=== PATIENT | female | born 1990 | race Caucasian/White ===

== ENCOUNTER 2023-07-05 14:08 | Outpatient (CLI) | payer MEDICAID, SELFPAY | END 2023-07-05 14:09 | disposition home or self-care (01) | LOC: AMB 07-13 03:51 | PROVIDERS: Visit Provider Emergency Medicine | DX: F30.9 Manic episode, unspecified (principal) ==

== ENCOUNTER 2023-07-05 14:44 | Emergency (ER) | payer MEDICAID, SELFPAY ==
[2023-07-05 15:09] VITALS: BP 135/89; PULSE 99; RESP 18; TEMP 36.7; O2SAT 99
--- NOTE | 2023-07-05 15:13 | ED.GENADULT ---
HPI - General Adult General Date Seen: 07/05/23 Chief complaint: Psychiatric Problem/Disorder Stated complaint: mental health Time Seen by Provider: 07/05/23 14:56 History of Present Illness HPI narrative: History is limited by altered mental status 33-year-old female brought to the ER today by police and EMS for mental health crisis. Report from public safety police with her is that she has a previous diagnosis of bipolar. Sounds like it had been fairly well managed on medications for several years. A few months ago it sounds like her mental health status started to deteriorate. She has been living with her family. She has gone through a break-up with her boyfriend. It sounds like someone has been trying to adjust her medications. Possibly trying to increase Seroquel dose? Family called EMS today because the patient was becoming more more agitated. They have reported paramedics patient had gone maybe 5 days without sleep. Today she was trying to run out in the street. Family was able to hold her down and were apparently holding her down when police arrived. Overall the situation was not violent or aggressive so police did not take the patient into handcuffs or custody. Patient was somewhat agitated and very confused and disoriented, but was following commands and ultimately did climb onto the EMS gurney for transport without requiring physical restraints. I encountered the patient when she comes out into her room and she is being redirected into her room by security and police. She is not agitated but she is not really following the commands either. When asked the patient if she remembers what is going on she has a somewhat blank stare. She says to the nurse, ?you look tired. 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 When asked her if she knows what day it is she has a blank stare. Please officers tell her that it is good Saturday and that it is June 2023. She seems confused by knowing the year, and says ?that was a long time ago!?. She is not able to give any history or really answer questions. I asked her if she is having any pain but she does not answer. I asked her to if she is thirsty and hungry and she does not answer. Ultimately she agrees to take my hand at L back and remain get a rest on bed. Not able to get any further history. She is not able to tell me about any meds that she is taking or if she has been sleeping or not. Unclear if she is having hallucinations or delusions. She seems very disoriented, somewhat hyper stimulated but not agitated or physically aggressive. She is not shouting or swearing. Additional history from her mother is that she does have a history of bipolar. She is on lithium, lamotrigine, and p.r.n. Seroquel. Has been stable for several years since her last hospitalization in 2017. Follows with Psychiatry, Dr. Powell. They have been trying to wean off some of her meds lately. 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 Mother notes worsening insomnia for at least the past 5 days also worsening confusion and disorientation. Today she was trying to run out of the house, prompting call to 911. She is probably Mr. [place] and lamotrigine for couple of days. Mother was trying to help get her back on meds yesterday and this morning. Also gave her a dose of her p.r.n. Seroquel which seemed to cause worsening agitation. Mother's phone number is [phone] Related Data Home Medications Medication Instructions Recorded Confirmed lamotrigine 200 mg tablet 200 mg PO DAILY 07/05/23 07/05/23 lithium carbonate 150 mg capsule mg PO 07/05/23 nicotine (polacrilex) 2 mg gum mg PO Q2H PRN nicotine cravings 07/05/23 quetiapine 100 mg tablet mg PO 07/05/23 quetiapine 25 mg tablet 25 - 50 mg PO QPM PRN 07/05/23 07/05/23 sertraline 100 mg tablet 150 mg PO DAILY 07/05/23 07/05/23 Allergies Allergy/AdvReac Type Severity Reaction Status Date / Time venlafaxine [From Effexor] AdvReac Severe Paulette Verified 07/05/23 19:53 clomipramine AdvReac Intermediate Paulette Verified 07/05/23 19:53 fluoxetine AdvReac Intermediate sedation Verified 07/05/23 19:53 PFSH PFSH Social History Smoking Status: Smoker, status unknown Do you use any of these nicotine containing products: None Exam Narrative: Exam Narrative: Primary Survey: A- patent. Confused and disoriented, but Speaking clearly. Phonation normal. No stridor. B- breathing easily. Lung sounds clear and equal. Oxygen saturation normal on room air C- no active bleeding. Blood pressure stable. Symmetric pulses and cap refill in 4 extremities. D- alert but night able to answer orientation questions. Seems disoriented and confused. Shouting loudly. Appears manic. GCS 15. No focal deficits. Gait steady in the hallway. Constitutional: Appears well-developed and well-nourished. Alert. HENT: Head: Atraumatic. Nose: Nose normal. Mouth/Throat: Oral mucosa is clear and moist. no trismus. Pharynx normal. Tonsils symmetric. No tonsillar enlargement, erythema, or exudate. Eyes: Conjunctivae normal. EOM normal. Pupils equal, round, and reactive to light. No scleral icterus. Neck: Normal range of motion. Neck supple. No tracheal deviation present. Thyroid normal. Cardiovascular: Normal rate, regular rhythm. No gallop. No friction rub. No murmur heard. Symmetric radial artery pulses Pulmonary/Chest: Effort normal. No stridor. No respiratory distress. No wheezes. No rales. No rhonchi Abdominal: Soft. Bowel sounds normal. No distension. No mass. No tenderness. No rebound. No guarding. Musculoskeletal: RUE: Normal range of motion. No tenderness. No deformity LUE: Normal range of motion. No tenderness. No deformity RLE: Normal range of motion. No edema. No tenderness. No deformity LLE: Normal range of motion. No edema. No tenderness. No deformity Neurological: Alert and oriented to person, but not oriented to place or time. Normal strength. CN II-VII intact. No sensory deficit. GCS eye subscore is 4. GCS verbal subscore is 5. GCS motor subscore is 6. Normal coordination Skin: Skin is warm and dry. No rash noted. No pallor. Normal capillary refill. Psychiatric: Somewhat agitated. Standing in the hallway. She is not aggressive or pushing or assaulting anyone. She is not making any threats. Sometimes she is shouting loudly without any clear intent. Initially not responding to verbal instructions to return to her room. Ultimately I am able to get her to take my hand walk back to late on her bed. Still agitated. She consented to take oral Zyprexa, administered. With this she was still agitated so we administered IM Zyprexa. Still agitated and shouting. We administered droperidol and Versed and with this she was sleeping. Recheck-awake. Requesting something right with. She was given a crayon and paper and was writing the word accept repetitively on the paper. Most history obtained from the patient's mother, see HPI. Const: Vital Signs, click to edit/add: Vital Signs - 24 hr 07/05/23 15:09 Temperature 98.1 F Pulse Rate [Pulse Oximeter] 99 Respiratory Rate 18 Blood Pressure [facility] 135/89 Pulse Oximetry 99 Oxygen Delivery Me thod Room Air Course Vital Signs Vital signs: Initial Vital Signs Temperature 98.1 F 07/05/23 15:09 Temperature Source Temporal Artery Scan 07/05/23 15:09 Pulse Rate 99 07/05/23 15:09 Respiratory Rate 18 07/05/23 15:09 Blood Pressure 135/89 07/05/23 15:09 Blood Pressure Mean 104 07/05/23 15:09 Blood Pressure Position Supine 07/05/23 15:09 Pulse Oximetry 99 07/05/23 15:09 Oxygen Delivery Method Room Air 07/05/23 15:09 Vital Signs Temperature 98.1 F 07/05/23 15:09 Pulse Rate 99 07/05/23 15:09 Respiratory Rate 18 07/05/23 15:09 Blood Pressure 135/89 07/05/23 15:09 Pulse Oximetry 99 07/05/23 15:09 Oxygen Delivery Method Room Air 07/05/23 15:09 Temperature 98.1 F 07/05/23 15:09 Pulse Rate 99 07/05/23 15:09 Respiratory Rate 18 07/05/23 15:09 Blood Pressure 135/89 07/05/23 15:09 Pulse Oximetry 99 07/05/23 15:09 Oxygen Delivery Method Room Air 07/05/23 15:09 Medications Administered Medications: Generic Name Dose Route Start Last Admin Trade Name Freq PRN Reason Stop Dose Admin Lorazepam 1 mg 07/05/23 19:24 07/05/23 19:40 Lorazepam 1 Mg Tablet PO 1 mg ONCE PRN Administration Anxiety Discontinued Medications Generic Name Dose Route Start Last Admin Trade Name Freq PRN Reason Stop Dose Admin Droperidol 5 mg 07/05/23 15:55 07/05/23 16:06 Droperidol 2.5 Mg/Ml Inj IM 07/05/23 15:56 5 mg ONCE ONE Administration Midazolam HCl 1 mg 07/05/23 15:55 07/05/23 16:07 Midazolam Hcl 1 Mg/Ml Inj IM 07/05/23 15:56 1 mg ONCE ONE Administration Olanzapine 10 mg 07/05/23 15:10 07/05/23 15:26 Olanzapine 5 Mg Tab.Rapdis PO 07/05/23 15:11 10 mg ONCE ONE Administration Medical Decision Making MDM Narrative Medical decision making narrative: 33-year-old female with history of bipolar disorder presenting to the ER today by EMS from home where she lives with her parents for acute alteration in mental status. She has a history of bipolar with multiple recent stressors. She has had insomnia for probably 5 nights and stopped taking her meds for couple of nights today leading to increasing agitation and erratic behavior. She is not violent or aggressive and has not harmed anyone. However it is clear that she is very disoriented and needs inpatient mental health evaluation. We did do laboratory workup which shows no evidence for renal failure, hypoglycemia, hepatic failure,. Some Tylenol salicylate levels are negative. Urine drug screen is positive for marijuana and tricyclics but otherwise negative. Alcohol level negative. She is not febrile and has no cough further infection symptoms but does have a leukocytosis of 14. At this point with no headache, no fever, I do not think she has meningitis or encephalitis. Would not perform lumbar puncture at this time. She will need inpatient stabilization mental standpoint . With reasonable clinical confidence I do think she is medically clear despite her leukocytosis. I ordered lithium and lamotrigine drug levels. These are not back at this time because they are send out labs. Discussed with Dr. Larsen, psychiatry from [facility] who accepted the patient for inpatient mental health admission. Lab Data Labs: Lab Results 07/05/23 07/05/23 07/05/23 Range/Units 15:30 18:15 18:15 WBC 14.76 H (4.50-11.00) K/uL RBC 4.36 (4.00-5.20) m/uL Hgb 13.8 (12.0-16.0) gm/dL Hct 40.7 (33.0-51.0) % MCV 93 (80-100) fL MCH 32 (26-34) pg MCHC 34 (32-36) gm/dL RDW Coeff of Salvatore 12.4 (11.5-15.5) % Plt Count 259 (140-440) K/uL Neut % (Auto) 74.8 H (42.0-72.0) % Lymph % (Auto) 17.3 L (20-44) % [place] % (Auto) 7.4 (0.0-11.0) % Eos % (Auto) 0.2 (0.0-7.0) % Baso % (Auto) 0.1 (0.0-3.0) % Neut # (Auto) 11.00 H (1.7-7.0) K/uL Lymph # (Auto) 2.60 (0.90-2.90) K/uL [place] # (Auto) 1.10 H (0.00-0.90) K/UL Eos # (Auto) 0.00 (0.00-0.50) K/uL Baso # (Auto) 0.00 (0.00-0.30) K/uL Abs Immat Gran (auto) 0.00 (0.00-0.30) K/uL Imm/Tot Granulo (auto) 0.2 % Sodium 140 (135-149) mmol/L Potassium 4.1 (3.6-5.1) mmol/L Chloride 110 (96-114) mmol/L Carbon Dioxide 24 (20-32) mmol/L Anion Gap 6 L (7-15) mEq/L BUN 9 (5-24) mg/dL Creatinine 0.5 (0.5-1.5) mg/dL Estimated GFR 127 ml/min Glucose 101 (60-115) mg/dL Calcium 9.7 (8.4-10.6) mg/dL Total Bilirubin 0.5 (0.1-1.5) mg/dL AST 23 (12-35) U/L ALT 22 (4-35) U/L Alkaline Phosphatase 47 (40-150) U/L Total Protein 7.4 (6.0-8.3) g/dL Albumin 4.5 (3.3-5.0) g/dL TSH 4.000 (0.270-4.200) uIU/mL Urine Color Yellow (Yellow) Urine Appearance Clear (Clear) Urine pH 7.5 (5.0-8.5) Ur Specific [place] 1.020 (1.000-1.030) Urine Protein Negative (Negative) Urine Glucose (UA) Negative (Negative) Urine Ketones Negative (Negative) Urine Blood Negative (Negative) Urine Nitrite Negative (Negative) Urine Bilirubin Negative (Negative) Urine Urobilinogen 0.2 (0.2-1.0) Ur Leukocyte Esterase Negative (Negative) Urine RBC 0-2 (0-2) Urine WBC 0-2 (0-5) Ur Squamous Epith Cells Few (None-Few) Urine Bacteria Few A (None) Urine HCG, Qual Negative (Negative) Salicylates Cancelled < 1.0 L Urine Opiates Screen Negative (Negative) Ur Oxycodone Screen Negative (Negative) Urine Methadone Screen Negative (Negative) Acetaminophen Cancelled Ur Barbiturates Screen Negative (Negative) U Tricyclic Antidepress POSITIVE A (Negative) Ur Phencyclidine Scrn Negative (Negative) Ur Amphetamines Screen Negative (Negative) U Methamphetamines Scrn Negative (Negative) U Benzodiazepines Scrn Negative (Negative) Urine Cocaine Screen Negative (Negative) U Marijuana (THC) Screen POSITIVE A (Negative) Ur Drug Screen Comment See Note Ethyl Alcohol 07/05/23 07/05/23 Range/Units 18:15 18:15 WBC (4.50-11.00) K/uL RBC (4.00-5.20) m/uL Hgb (12.0-16.0) gm/dL Hct (33.0-51.0) % MCV (80-100) fL MCH (26-34) pg MCHC (32-36) gm/dL RDW Coeff of Salvatore (11.5-15.5) % Plt Count (140-440) K/uL Neut % (Auto) (42.0-72.0) % Lymph % (Auto) (20-44) % [place] % (Auto) (0.0-11.0) % Eos % (Auto) (0.0-7.0) % Baso % (Auto) (0.0-3.0) % Neut # (Auto) (1.7-7.0) K/uL Lymph # (Auto) (0.90-2.90) K/uL [place] # (Auto) (0.00-0.90) K/UL Eos # (Auto) (0.00-0.50) K/uL Baso # (Auto) (0.00-0.30) K/uL Abs Immat Gran (auto) (0.00-0.30) K/uL Imm/Tot Granulo (auto) % Sodium (135-149) mmol/L Potassium (3.6-5.1) mmol/L Chloride (96-114) mmol/L Carbon Dioxide (20-32) mmol/L Anion Gap (7-15) mEq/L BUN (5-24) mg/dL Creatinine (0.5-1.5) mg/dL Estimated GFR ml/min Glucose (60-115) mg/dL Calcium (8.4-10.6) mg/dL Total Bilirubin (0.1-1.5) mg/dL AST (12-35) U/L ALT (4-35) U/L Alkaline Phosphatase (40-150) U/L Total Protein (6.0-8.3) g/dL Albumin (3.3-5.0) g/dL TSH (0.270-4.200) uIU/mL Urine Color (Yellow) Urine Appearance (Clear) Urine pH (5.0-8.5) Ur Specific [place] (1.000-1.030) Urine Protein (Negative) Urine Glucose (UA) (Negative) Urine Ketones (Negative) Urine Blood (Negative) Urine Nitrite (Negative) Urine Bilirubin (Negative) Urine Urobilinogen (0.2-1.0) Ur Leukocyte Esterase (Negative) Urine RBC (0-2) Urine WBC (0-5) Ur Squamous Epith Cells (None-Few) Urine Bacteria (None) Urine HCG, Qual (Negative) Salicylates Urine Opiates Screen (Negative) Ur Oxycodone Screen (Negative) Urine Methadone Screen (Negative) Acetaminophen < 10.0 L Ur Barbiturates Screen (Negative) U Tricyclic Antidepress (Negative) Ur Phencyclidine Scrn (Negative) Ur Amphetamines Screen (Negative) U Methamphetamines Scrn (Negative) U Benzodiazepines Scrn (Negative) Urine Cocaine Screen (Negative) U Marijuana (THC) Screen (Negative) Ur Drug Screen Comment Ethyl Alcohol Cancelled < 0.01 L Discharge Plan Discharge Clinical Impression: Paulette Patient Disposition: Xfer Other Prescriptions: No Action quetiapine 25 mg tablet 25 - 50 mg PO QPM PRN lamotrigine 200 mg tablet 200 mg PO DAILY nicotine (polacrilex) 2 mg gum PO Q2H PRN (Reason: nicotine cravings) sertraline 100 mg tablet 150 mg PO DAILY lithium carbonate 150 mg capsule PO quetiapine 100 mg tablet PO [facility] Inst[facility]
[2023-07-05] MEDS: OLANZapine 5 MG TAB.RAPDIS 10 MG PO (15:26)
[2023-07-05 15:41] LABS: Ur HCG Qualitative* Negative (Negative)
[2023-07-05 15:42] LABS: Appearance Urine Clear (Clear); Bilirubin Urine Negative (Negative); Blood Urine Negative (Negative); Color Urine Yellow (Yellow); Glucose Urine Negative (Negative); Ketones Urine Negative (Negative); Leukocyte Esterase Urine Negative (Negative); Nitrite Urine Negative (Negative); Protein Urine Negative (Negative); Urobilinogen Urine 0.2 (0.2-1.0); pH Urine 7.5 (5.0-8.5)
[2023-07-05 15:52] LABS: Amphetamine Screen Urine Negative (Negative); Barbiturate Screen Urine Negative (Negative); Benzodiazepines Screen Urine Negative (Negative); Cannabinoid Screen Urine POSITIVE (Negative); Cocaine Screen Urine Negative (Negative); Methadone Screen Urine Negative (Negative); Methamphetamines Screen Urine Negative (Negative); Opiate Screen Urine Negative (Negative); Oxycodone Screen Urine Negative (Negative); Phencyclidine Screen Urine Negative (Negative); Tricyclic Antidepressant Urine POSITIVE (Negative)
[2023-07-05] MEDS: droperidoL 2.5 MG/ML inj 5 MG IM (16:06)
[2023-07-05] MEDS: MIDAZOLAM HCL 1 MG/ML inj IM (16:07)
[2023-07-05 16:41] LABS: Bacteria Urine Few; RBC Urine 0-2 (0-2); Squamous Epithelial Cell Urine Few (None-Few); WBC Urine 0-2 (0-5)
[2023-07-05 18:24] LABS: Basophils Percent Auto 0.1 % (0.0-3.0); Eosinophils Percent Auto 0.2 % (0.0-7.0); Hematocrit 40.7 % (33.0-51.0); Hemoglobin* 13.8 gm/dL (12.0-16.0); Immature Granulocytes Pct Auto 0.2 %; Lymphocytes Percent Auto 17.3 % (20-44); Mean Corpuscular HGB Conc 34 gm/dL (32-36); Mean Corpuscular Hemoglobin 32 pg (26-34); Mean Corpuscular Volume 93 fL (80-100); Monocytes Percent Auto 7.4 % (0.0-11.0); Neutrophils Percent Auto 74.8 % (42.0-72.0); Platelet Count* 259 K/uL (140-440); RDW Coefficient of Variation % 12.4 % (11.5-15.5); Red Blood Count 4.36 m/uL (4.00-5.20); White Blood Count* 14.76 K/uL (4.50-11.00)
[2023-07-05 18:28] LABS: Slide Review Reflex No
[2023-07-05 18:38] LABS: Albumin* 4.5 g/dL (3.3-5.0)
[2023-07-05 18:39] LABS: Chloride* 110 mmol/L (96-114); Potassium* 4.1 mmol/L (3.6-5.1); Sodium* 140 mmol/L (135-149)
[2023-07-05 18:41] LABS: Alkaline Phosphatase* 47 U/L (40-150); Anion Gap 6 mEq/L (7-15); Aspartate Amino Transferase* 23 U/L (12-35); Bilirubin Total* 0.5 mg/dL (0.1-1.5); Carbon Dioxide* 24 mmol/L (20-32); Creatinine* 0.5 mg/dL (0.5-1.5); Estimated Glomerular Filt Rate 127 ml/min; Total Protein* 7.4 g/dL (6.0-8.3)
[2023-07-05 18:42] LABS: Alanine Aminotransferase* 22 U/L (4-35); Blood Urea Nitrogen* 9 mg/dL (5-24); Calcium* 9.7 mg/dL (8.4-10.6); Glucose* 101 mg/dL (60-115)
[2023-07-05 18:44] LABS: Acetaminophen* < 10.0 ug/mL (10.0-30.0); Ethanol* < 0.01 % (0.01-0.03); Salicylate* < 1.0 mg/dL (1.0-10)
[2023-07-05] MEDS: LORazepam 1 MG TABLET PO (19:40)
[2023-07-07 06:43] LABS: Lamotrigine 3.4 ug/mL (3.0-15.0)
[2023-07-07 11:46] LABS: Lithium, Serum or Plasma 0.2 mmol/L (0.5-1.2)
--- NOTE | 2023-07-08 14:17 | ED.NURSE ---
Mother was called to [employer] medications that were left here yesterday. given both prescription bottles to mother.
== END 2023-07-05 22:38 | disposition other institution (70) ==
PROVIDERS: Emergency Provider Emergency Medicine
DX: F30.9 Manic episode, unspecified (principal)
CPT/HCPCS: 36415; 80053; 80143; 80175; 80178; 80179; 80306; 81001; 81025; 82077; 84443; 85025; 87086; 96372; 99284; A9270; J1790; J2250

== ENCOUNTER 2023-07-05 22:34 | Outpatient (CLI) | payer MEDICAID, SELFPAY | END 2023-07-05 22:35 | disposition home or self-care (01) | LOC: AMB 07-13 03:57 | PROVIDERS: Visit Provider Internal Medicine | DX: F31.9 Bipolar disorder, unspecified (principal) | CPT/HCPCS: A0425; A0428 ==

== ENCOUNTER 2024-05-16 02:47 | Emergency (ER) | payer MEDICAID, SELFPAY ==
--- OUTSIDE RECORDS SUMMARY | 2024-05-16 02:49 | XMS_ITS | Clinical Summary ---
Author Organization [employer] [facility] Address [place], [place] [address] Care Team Providers Care Aviation Safety Equipment Technician Name Role Phone Swetha Cabral DO Primary Care Provider [phone] Allergies Active Allergy Reactions Criticality Noted Date Comments Clomipramine Mental Status Change 09/09/2015 Apparent manic episode Venlafaxine Analogues Mental Status Change 09/09/2015 Manic episode Fluoxetine Mental Status Change 09/09/2015 Caused excessive sedation Olanzapine Agitation 01/08/2024 Strong agitated, easily irritated, struggled to discontinue with significant withdrawal symptoms. Unlisted Allergen (Include Detail In Comments) Other - Describe In Comment Field 09/09/2015 HUT Comment: Manic episode; HUT Reaction: Mental Status Change Medications tretinoin (RETIN-A) 0.025 % gelIndications:A cne vulgaris Apply topically to affected area(s) at bedtime. 45 g 2 4 Active lamoTRIgine 200 mg tabletIndication s:Bipolar 1 disorder (HC) TAKE 1 TABLET (200 MG) BY MOUTH ONCE DAILY. 90 Tablet 1 4 Active clonazePAM (KLONOPIN) 0.5 mg tabletIndication s:Insomnia, unspecified type Take 1-2 Tablets (0.5-1 mg) by mouth at bedtime if needed for Sleep or Anxiety. 20 Tablet 4 Active hydrOXYzine pamoate (VISTARIL) 50 mg capsuleIndicatio ns:Anxiety 1 capsule three times daily as needed for anxiety 90 Capsule 2 4 Active traZODone (DESYREL) 50 mg tabletIndication s:Insomnia due to other mental disorder Take 1-2 Tablets (50-100 mg) by mouth at bedtime if needed for Sleep or Anxiety. 62 Tablet 4 Active lithium carbonate (LITHONATE) 300 mg capsuleIndicatio ns:Bipolar 1 disorder (HC) Take 3 Capsules (900 mg) by mouth at bedtime. 180 Capsule 1 4 Active sertraline (ZOLOFT) 50 mg tabletIndication s:Mixed obsessional thoughts and acts Take 1 Tablet (50 mg) by mouth once daily in the morning. 90 Tablet 1 4 Active Active Problems Problem Noted Date Diagnosed Date Pap smear for cervical cancer screening 02/08/20 23 Overview (02/07/2023): 01/2023 NIL/HPV negative. Plan: Pap/HPV due 01/2028 Bipolar 1 disorder 10/22/2018 Controlled substance agreement signed 08/10/2016 Overview (08/10/2016): Signed 05/07/2016;Dr. Amber Joyner Psychiatry Bipolar 1 disorder, depressed, severe 01/27/2016 GINA (generalized anxiety disorder) 01/27/2016 Cigarette nicotine dependence without complicati on 01/27/2016 Acute cystitis without hematuria 01/27/2016 Carpal tunnel syndrome, bilateral 09/09/2015 H/O acute alcohol intoxication 08/12/2015 Overview (08/12/2015): ER visit in 2012 at [facility]. OCD (obsessive compulsive disorder) 07/18/2015 Resolved Problems Problem Noted Date Diagnosed Date Resolved Date Major depressive disorder, r ecurrent episode, unspecified 06/04/2012 07/18/2015 Encounters Date Type Department Care Team Description 05/14/2024 8:15 AM STILL OPERATOR BRANDY Telemedicine [facility] [address] [place] [address] Amber Joyner MD Telehealth 05/14/2024 Travel 05/04/2024 8:45 AM STILL OPERATOR BRANDY Office Visit [facility] [id number] [place] [id number] [facility] Psychotherapy 05/04/2024 Travel 04/29/2024 Telephone [facility] [address] [place] [address] Amber Joyner MD Late Cancel Appointment 04/27/2024 10:00 AM STILL OPERATOR BRANDY Office Visit [facility] [id number] [place] [id number] [facility] Psychotherapy 04/27/2024 Travel 04/13/2024 8:45 AM STILL OPERATOR BRANDY Office Visit [address] [address] [facility] Psychotherapy 04/13/2024 Travel 04/06/2024 1:00 PM STILL OPERATOR BRANDY Office Visit [address] [address] [facility] H, [facility]yD, [facility] Psychotherapy 04/06/2024 9:15 AM STILL OPERATOR BRANDY Office Visit [facility] [address] [place] [address] Amber Joyner MD Medication Management (Things are going a lot better) 04/06/2024 Travel 03/23/2024 8:45 AM STILL OPERATOR BRANDY Office Visit [address] [address] [facility] Psychotherapy 03/23/2024 Travel 03/16/2024 10:00 AM STILL OPERATOR BRANDY Office Visit [address] [address] [facility] H [facility] Psychotherapy 03/16/[address] [address] [place] [facility] H, Psy[facility] Abstract (Release of Information/) 03/16/2024 Travel 03/09/2024 8:45 AM STILL OPERATOR BRANDY Office Visit [facility] [id number] [place] [address] Rigoberto Nolasco PsyD, LP Psychotherapy 03/09/2024 Travel 03/04/2024 Refill [facility] [address] [place] [address] Amber Joyner MD Refill Request (Trazodone) 03/02/2024 Telephone [facility] [id number] [place] [address] Rigoberto Nolasco PsyD, LP Late Cancel Appointment 02/27/2024 9:15 AM STILL OPERATOR BRANDY Telemedicine [facility] [address] [place] [address] Amber Joyner MD Telehealth; Medication Management (Things are going okay, better than last week) 02/27/2024 Travel 02/24/2024 8:45 AM STILL OPERATOR BRANDY Office Visit [facility] [id number] [place] [address] Rigoberto Nolasco PsyD, ADIEL Psychotherapy 02/24/2024 Travel 02/19/2024 Refill [facility] [address] [place] [address] Amber Joyner MD Refill Request 02/19/2024 Telephone [facility] [id number] [place] [address] Rigoberto Nolasco PsyD, LP Concerns 02/18/2024 1:00 PM STILL OPERATOR BRANDY Office Visit [facility] [id number] [place] [address] Rigoberto Nolasco PsyD, LP Psychotherapy 02/17/2024 8:45 AM STILL OPERATOR BRANDY Office Visit [address] [address] Rigoberto Nolasco PsyD, LP Psychotherapy 02/17/2024 Travel from Last 3 Months Immunizations Name Administration Dates Next Due Hepatitis A (Adult) 12/30/2013,05/07/2011 Hepatitis B (Peds) 08/03/2003,01/21/2003, 003 Human Papilloma Virus Vaccin e, Unspecified 06/07/2014,12/30/2013,02/14/2012 MENINGOCOCCAL VACCINE 2 VIAL [id number] (MENVEO) 05/07/2011 MMR 11/23/2002 Td (Age >=7 Years) 11/23/2002 Tuberculin (PPD) 03/14/2018, 8,05/12/2012,05/07 Typhoid (injectable) 05/07/2011 Family History Medical History Relation Name Comments Alzheimer's disease Maternal Grandmother Suicide Attempts Maternal Uncle Cancer Paternal Grandfather Cancer Paternal Grandmother Relation Name Status Comments Maternal Grandmother Maternal Uncle Paternal Grandfather Paternal Grandmother Social History Tobacco Use Types Packs/Day Years Used Date Smoking Tobacco: Former Cigarettes 0.3 5 Q uit: 06/2022 Smokeless Tobacco: Never Tobacco Cessation:Counseling Given: Not Answered Comments:Quit 3-2022 Alcohol Use Standard Drinks/Week Comments Not Currently 3 (1 standard drink = 0.6 oz pur e alcohol) sober since 2018 PHQ-2 Answer Date Recorded PHQ-2 TOTAL SCORE 1 05/14/2024 Social Connections Answer Date Recorded Frequency of Communication with Friends and Fami ly 0 12/19/2022 Alcohol Use Answer Date Recorded How often do you have a drink containing alcohol ? 0 08/21/2021 Average Number of Drinks Not on file 022 Frequency of Binge Drinking Not on file 08/06 Financial Resource Strain Answer Date R ecorded Difficulty of Paying Living Expenses 3 12/19/2022 Difficulty of Paying Living Expenses Not on file 12/19/2022 Food Insecurity Answer Date Recorded Worried About Running Out of Food in the Last Ye ar 1 12/19/2022 Transportation Needs Answer Date Record ed Lack of Transportation (Medical) 1 12/19/2022 Housing Stability Answer Date Recorded Unable to Pay for Housing in the Last Year 1 12/19/2022 Comments No Sex and Gender Information Value Date Recorded Sex Assigned at Not on file Legal Sex Female 5:44 AM STILL OPERATOR BRANDY Gender Identity Not on file Sexual Orientation Not on file Obstetrics History Para Term AB IAB SAB Ectopic Multiple Livin g Live Births 0 0 0 0 0 0 0 0 0 0 0 Last Filed Vital Signs Vital Sign Reading Time Taken Comments Blood Pressure 97/63 04/06/2024 9:27 AM STILL OPERATOR BRANDY Pulse 67 04/06/2024 9:27 AM STILL OPERATOR BRANDY Temperature 37.2 C (98.9 F) 05/05/2020 9:48 AM STILL OPERATOR BRANDY Respiratory Rate 12 08/15/2023 11:52 AM CDT Oxygen Saturation 98% 07/29/2023 10:43 AM CDT Inhaled Oxygen Concentration - - Weight 76 kg (167 lb 9.6 oz) 04/06/2024 9:27 AM STILL OPERATOR BRANDY Height 177.2 cm (5' 9.75) 12/19/2022 1:50 PM CD T Body Mass Index 24.22 12/19/2022 1:50 PM CDT Plan of Treatment Upcoming Encounters Date Type Department Care Team (Late st Contact Info) Description 05/18/2024 1:00 PM STILL OPERATOR BRANDY Office Visit [address] [address] Rigoberto Nolasco PsyD, LP [address] [place] [address] 05/25/2024 10:00 AM STILL OPERATOR BRANDY Office Visit [address] [address] Rigoberto Nolasco PsyD, LP [address] [place] [address] 06/02/2024 10:00 AM STILL OPERATOR BRANDY Office Visit [address] [address] Rigoberto Nolasco PsyD, LP [address] [place] [address] 06/08/2024 10:00 AM STILL OPERATOR BRANDY Office Visit [address] [address] Rigoberto Nolasco PsyD, LP [address] [place] [address] 06/24/2024 10:15 AM CDT Office Visit [facility] [address] [place] [address] Amber Joyner MD [address] [place] [address] Health Maintenance Due Date Last Done Comments Tdap 2001 Tetanus booster 11/23/2012 11/23/2002 COVID-19 vaccine series ( season) 2023 Influenza for age 9-49 12/08/2023 BMI (ht and wt on same day) for age 18+ 12/20/2023 12/19/2022, 05/21/2022, 05/04/2020, Additional history exists Depression screening for age 12+ 05/14/2025 05/14/2024, 05/04/2024, 04/29/2024, Additional history exists Pap test for age 21-65 01/31/2028 , 01/30/2023, 01/13/2020, Additional history exists Hepatitis C screening for age 18-79 Completed 02/10/2021, 12/28/2014 HIV for age 15-65 Completed 07/29/2023, , 02/10/2021, Additional history exists Pneumococcal series for age 6-49 Aged Out No longer eligible based on patient's age to complete this topic Procedures Procedure Name Priority Date/Time Associated Diagnosis Comments ANTI HIV 1/2 Routine 07/29/2023 11:27 AM CDT Screening examination for STD (sexually transmitted disease) HPV HIGH RISK Routine 01/30/2023 9:33 AM CDT Screening for cervical cancer ANTI HCV Routine 02/10/2021 2:13 PM CDT Screening examination for STD (sexually transmitted disease) from Last 3 Months or Most Recently Relevant to Health Maintenance Results * ANTI HIV 1/2 (07/29/2023 11:27 AM CDT) Pathologist [facility] HIV-1/HIV-2 SCREEN Non-Reacti ve Non-Reacti ve 07/30/2023 4:56 AM CDT [facility] Comment:HIV-1 p24 and HIV-1/ HIV-2 Ab Not Detected. Blood BLOOD SPECIMEN / Unknown Venipuncture / Unknown 07/29/2023 11:27 AM CDT 07/29/2023 11:30 AM CDT [employer] DO SEND OUTS Final Result Performing Organization Address City/[facility]/ZIP Co de Phone Number [facility] [address] [place] [address], * HPV HIGH RISK (01/30/2023 9:33 AM CDT) [facility] TYPE 16 Negative Negative 02/02/2023 8:03 AM CDT [facility] TYPE 18 Negative Negative 02/02/2023 8:03 AM CDT [facility] OTHER HIGH RISK TYPES Negative Negative 02/02/2023 8:03 AM CDT [facility] Other (Cervical) Non-Blood / Unknown 01/30/2023 9:33 AM CDT 01/31/2023 11:28 AM CDT Narrative [facility] - 02/02/2023 8:03 AM CDT HPV types 16, 18, 31, 33, 35, 39, 45, 51, 52, 56, 58, 59, 66 and 68 DNA were undetectable or below the pre-set threshold. Methodology: Rony Dejuan 4800 HPV Test [employer] DO MICROBIOLOGY Final Result Performing Organization Address City/[facility]/ZIP Co de Phone Number [facility] [address] [place] [address], * ANTI HCV (02/10/2021 2:13 PM CDT) Pathologist [facility] HEPATITIS C ANTIBODY Non-React meghana Non-React meghana 02/10/2021 9:06 PM CDT [facility] Comment:Antibodies to HCV no t detected; does not exclude the possibility of exposure to HCV. Blood BLOOD SPECIMEN / Unknown Venipuncture / Unknown 02/10/2021 2:13 PM CDT 02/10/2021 2:13 PM CDT us Swetha Cabral DO SEND OUTS Final Result [facility] [address] [place] [address], [place] from Last 3 Months or Most Recently Relevant to Health Maintenance Additional Health Concerns Infection Onset Date Last Indicated Rule-Out C.diff 03/23/2020 03/23/2020 Insurance MEDICAID t of [facility] [place] [address] [facility] Advance Directives * Full Code (Latest Code Status on File) Date Activated Date Inactivated Comments 01/26/2016 11:30 PM 03/09/2016 3:50 PM Question Answer Comments Code Status Discussion: Per Existing Order Care Teams Aviation Safety Equipment Technician Relationship Specialty Start Date End Date Swetha Cabral DO [address] [place] [address] PCP - General Family Practice 07/29/23
[2024-05-16 02:50] VITALS: BP 127/86; PULSE 80; RESP 16; TEMP 36.4; O2SAT 99; BMI 23.6
--- NOTE | 2024-05-16 02:55 | ED_ITS ---
HPI - General Adult General Date Seen: 05/16/24 Chief complaint: Eye Problems Stated complaint: contact stuck in left eye Time Seen by Provider: 05/16/24 02:54 History of Present Illness HPI narrative: 34-year-old female with history of bipolar disorder, otherwise healthy, contact lens wear presenting to the ER tonight with concern for retained contact in her left eye. She wears disposable contacts and put them in this morning. She had a long day today because today was her father's . She did lot of crying. Tonight she was trying to take out her contacts. She feels as though there is a contact in her left eye but she just can not get out. She feels as though this is a foreign body sensation on the medial aspect of her left eye, toward the nose. She called the nurse triage slide and was told to come here to the ER because retained contact can be dangerous. She has no medication allergies. Related Data Home Medications ?Medication ?Instructions ?Recorded ?Confirmed lamotrigine 200 mg tablet 200 mg PO DAILY 07/05/23 05/16/24 lithium carbonate 150 mg capsule 900 mg PO 07/05/23 nicotine (polacrilex) 2 mg gum mg PO Q2H PRN nicotine cravings 07/05/23 sertraline 100 mg tablet 150 mg PO DAILY 07/05/23 05/16/24 trazodone 50 mg tablet mg 05/16/24 Allergies Allergy/AdvReac Type Severity Reaction Status Date / Time venlafaxine (From Effexor) AdvReac Severe Paulette Verified 07/05/23 19:53 clomipramine AdvReac Intermediate Paulette Verified 07/05/23 19:53 fluoxetine AdvReac Intermediate sedation Verified 07/05/23 19:53 PFSH PFSH Social History Smoking Status: Smoker, status unknown Do you use any of these nicotine containing products: None Non-prescribed substance use: denies use Exam Narrative: Exam Narrative: Constitutional: Appears well-developed and well-nourished. Active. Non-toxic appearing. Polite. HENT: Head: Atraumatic. No signs of injury. Nose: No nasal discharge. Mouth/Throat: Mucous membranes are moist. Pharynx is normal. Tonsils symmetric. Uvula midline. Airway patent. Eyes: Conjunctivae normal and EOM are normal. Pupils are equal, round, and reactive to light. Right eye exhibits no discharge. Left eye exhibits no discharge. No icterus. Vision is blurry in both eyes because she does not currently have her contact lenses in appropriate positions PERRLA, EOMI. No exophthalmos or enophthalmos. Application of tetracaine to facilitate exam Conjunctiva mildly injected in the left eye. I am not able to visualize a contact cleanse it in the eye. I had the patient go through full range of motion with her EOMs. I applied fluorescein and attempt to get better visualization. I was not able to clearly visualized contact. Slit Lamp Exam: Lids: No foreign body noted in detailed exam upper and lower lids/margins. Still not able to visualize the contact. I was able to see a small rim of clear material on the very medial eye, difficult to discern whether it was the retained contact or tear film. I attempted to remove it using a sterile contact applicator and was not successful. I attempted to sweep under the patient's lids with this sterile cotton tip applicator. No foreign body or contact lens was encountered Anterior Chamber: No cells or flare, No hyphema. No hypopyon. Cornea: No foreign body. Fluorescein staining: Negative for fluorescein uptake. Neck: Normal range of motion. Neck supple. No adenopathy. No stridor. Cardiovascular: Normal rate and regular rhythm.Brisk capillary refill Pulmonary/Chest: Effort normal. No stridor. No respiratory distress. Musculoskeletal: Normal range of motion. No edema.. No deformity. Neurological: Alert. Normal strength. No cranial nerve deficit or sensory deficit. Coordination normal. GCS eye subscore is 4. GCS verbal subscore is 5. GCS motor subscore is 6. Skin: Skin is warm. No rash noted. Psych: Polite. Today was her father's . Const: Vital Signs, click to edit/add: Vital Signs - 24 hr 05/16/24 02:50 Temperature 97.5 F L Pulse Rate [Pulse Oximeter] 80 Respiratory Rate 16 Blood Pressure [Ri ght Upper Arm] 127/86 Pulse Oximetry 99 Oxygen Delivery Me thod Room Air Course Vital Signs Vital signs: Initial Vital Signs Temperature 97.5 F L 05/16/24 02:50 Temperature Source Temporal Artery Scan 05/16/24 02:50 Pulse Rate 80 05/16/24 02:50 Respiratory Rate 16 05/16/24 02:50 Blood Pressure 127/86 05/16/24 02:50 Blood Pressure Mean 99 05/16/24 02:50 Blood Pressure Position Sitting 05/16/24 02:50 Pulse Oximetry 99 05/16/24 02:50 Oxygen Delivery Method Room Air 05/16/24 02:50 Vital Signs Temperature 97.5 F L 05/16/24 02:50 Pulse Rate 80 05/16/24 02:50 Respiratory Rate 16 05/16/24 02:50 Blood Pressure 127/86 05/16/24 02:50 Pulse Oximetry 99 05/16/24 02:50 Oxygen Delivery Method Room Air 05/16/24 02:50 Temperature 97.5 F L 05/16/24 02:50 Pulse Rate 80 05/16/24 02:50 Respiratory Rate 16 05/16/24 02:50 Blood Pressure 127/86 05/16/24 02:50 Pulse Oximetry 99 05/16/24 02:50 Oxygen Delivery Method Room Air 05/16/24 02:50 Medications Administered Medications: Discontinued Medications Generic Name Dose Route Start Last Admin Trade Name Freq PRN Reason Stop Dose Admin Gentamicin Sulfate 2 drop 05/16/24 09:00 05/16/24 04:07 Gentamicin 0.3% Ophth EYE-LEFT 2 drop TID GENET Administration Medical Decision Making [facility] Narrative Medical decision making narrative: 34-year-old female contact lens wear presenting to the ER today with retained contact in her left eye. At home, she had a foreign body sensation on the medial aspect of her eye, but now that she is here in the ER she is not sure where the contact is. Her eye just feels irritated. Her sclera is a bit red because she has been rubbing at her eye to try to remove the lens. She is not diabetic or immunosuppressed. No trauma to her IR splash to her eye. On my exam using direct visualization, magnification with otoscope, and slit lamp with and without fluorescein are not able to see the contact lens. I suspect it may have migrated up underneath her lid or it is not visible at this point. I do not see any evidence for corneal abrasion or corneal ulcer. Anterior chamber is quiescent. Lids are normal. I do not see any sign of conjunctivitis or blepharitis. As I am not able to remove the contact here in the ER tonight, will start the patient on topical antibiotic drops to prevent infection. Patient will follow- up with the ophthalmology clinic tomorrow morning for re-evaluation and to have the foreign body removed Precautions for return to the ER reviewed with the patient. Discharge Plan Discharge Clinical Impression: Contact lens stuck Patient Disposition: Home, Self-Care Condition: Stable Instructions: Eye Foreign Body (ED) Additional Instructions: Please call [facility] ophthalmology at [phone] to schedule a ER follow- up visit tomorrow to have your contact lens removed Please start on the antibiotic drops, gentamicin, 2 drops every 6 hours until you see the eye doctor. Please do not reapply contact lenses until after you see the pricing associate. Please come back to the ER if you have worsening pain or redness or swelling, pus draining from your eye, or any concerns Prescriptions: No Action lamotrigine 200 mg tablet 200 mg PO DAILY nicotine (polacrilex) 2 mg gum PO Q2H PRN (Reason: nicotine cravings) sertraline 100 mg tablet 150 mg PO DAILY lithium carbonate 150 mg capsule 900 mg PO trazodone 50 mg tablet Patient Comments: TAKE 1-2 TABLETS (50-100 MG) BY MOUTH AT BEDTIME IF NEEDED FOR SLEEP OR ANXIETY. Follow Up/Referrals: Provider,Not a Local [Primary Care Provider] - Stand Alone Forms: Stuffle Info Instructions
--- OUTSIDE RECORDS SUMMARY | 2024-05-16 03:33 | XMS_ITS | Clinical Summary ---
Author Organization [employer] [facility] Address [place], [place] [address] Care Team Providers Care Esl Tutor Name Role Phone Swetha Cabral DO Primary Care Provider [phone] Allergies Active Allergy Reactions Criticality Noted Date Comments Clomipramine Mental Status Change 09/09/2015 Apparent manic episode Venlafaxine Analogues Mental Status Change 09/09/2015 Manic episode Fluoxetine Mental Status Change 09/09/2015 Caused excessive sedation Olanzapine Agitation 01/08/2024 Raymond agitated, easily irritated, struggled to discontinue with [...] Overview (08/12/2015): ER visit in 2012 at [place]. OCD (obsessive compulsive disorder) 07/18/2015 Resolved Problems Problem Noted Date Diagnosed Date Resolved Date Major depressive disorder, r ecurrent episode, unspecified 06/04/2012 07/18/2015 Encounters Date Type Department Care Team Description 05/14/2024 8:15 AM HAIRSPRING CUTTER Telemedicine [facility] [address] [facility] [place] [address] Amber Joyner MD Telehealth 05/14/2024 Travel 05/04/2024 8:45 AM HAIRSPRING CUTTER Office Visit [facility] [id number] [place] [address] AlexandriaRigoberto PsyD, LP Psychotherapy 05/04/2024 Travel 04/29/2024 Telephone [facility] [address] [place] [address] Amber Joyner MD Late Cancel Appointment 04/27/2024 10:00 AM HAIRSPRING CUTTER Office Visit [facility] [id number] [place] [address] AlexandriaRigoberto PsyD, LP Psychotherapy 04/27/2024 Travel 04/13/2024 8:45 AM HAIRSPRING CUTTER Office Visit [address] [address] AlexandriaRigoberto PsyD, LP Psychotherapy 04/13/2024 Travel 04/06/2024 1:00 PM HAIRSPRING CUTTER Office Visit [address] [address] AlexandriaCristalRigoberto H, PsyD, LP Psychotherapy 04/06/2024 9:15 AM HAIRSPRING CUTTER Office Visit [facility] [address] [place] [address] Amber Joyner MD Medication Management (Things are going a lot better) 04/06/2024 Travel 03/23/2024 8:45 AM HAIRSPRING CUTTER Office Visit [address] [address] AlexandriaCristalRigoberto H, PsyD, LP Psychotherapy 03/23/2024 Travel 03/16/2024 10:00 AM HAIRSPRING CUTTER Office Visit [address] [address] AlexandriaCristalRigoberto H PsyD, LP Psychotherapy 03/16/[address] [address] [place] Rigoberto H, PsyD, LP Abstract (Release of Information/) 03/16/2024 Travel 03/09/2024 8:45 AM HAIRSPRING CUTTER Office Visit [facility] [id number] [place] [address] Rigoberto Nolasco PsyD, LP Psychotherapy 03/09/2024 Travel 03/04/2024 Refill [facility] [address] [place] [address] Amber Joyner MD Refill Request (Trazodone) 03/02/2024 Telephone [facility] [id number] [place] [address] Rigoberto Nolasco PsyD, LP Late Cancel Appointment 02/27/2024 9:15 AM HAIRSPRING CUTTER Telemedicine [facility] [address] [place] [address] Amber Joyner MD Telehealth; Medication Management (Things are going okay, better than last week) 02/27/2024 Travel 02/24/2024 8:45 AM HAIRSPRING CUTTER Office Visit [facility] [id number] [place] [address] Rigoberto Nolasco PsyD, ADIEL Psychotherapy 02/24/2024 Travel 02/19/2024 Refill [facility] [address] [place] [address] Amber Joyner MD Refill Request 02/19/2024 Telephone [facility] [id number] [place] [address] Rigoberto Nolasco PsyD, LP Concerns 02/18/2024 1:00 PM HAIRSPRING CUTTER Office Visit [facility] [id number] [place] [address] Rigoberto Nolasco PsyD, LP Psychotherapy 02/17/2024 8:45 AM HAIRSPRING CUTTER Office Visit [address] [address] Rigoberto Nolasco PsyD, LP Psychotherapy 02/17/2024 Travel [...] on file Legal Sex Female 5:44 AM HAIRSPRING CUTTER Gender Identity Not on file Sexual Orientation Not on file Obstetrics History Para Term AB IAB SAB Ectopic Multiple Livin g Live Births 0 0 0 0 0 0 0 0 0 0 0 Last Filed Vital Signs Vital Sign Reading Time Taken Comments Blood Pressure 97/63 04/06/2024 9:27 AM HAIRSPRING CUTTER Pulse 67 04/06/2024 9:27 AM HAIRSPRING CUTTER Temperature 37.2 C (98.9 F) 05/05/2020 9:48 AM HAIRSPRING CUTTER Respiratory Rate 12 08/15/2023 11:52 AM CDT Oxygen Saturation 98% 07/29/2023 10:43 AM CDT Inhaled Oxygen Concentration - - Weight 76 kg (167 lb 9.6 oz) 04/06/2024 9:27 AM HAIRSPRING CUTTER Height 177.2 cm (5' 9.75) 12/19/2022 1:50 PM CD T Body Mass Index 24.22 12/19/2022 1:50 PM CDT Plan of Treatment Upcoming Encounters Date Type Department Care Team (Late st Contact Info) Description 05/18/2024 1:00 PM HAIRSPRING CUTTER Office Visit [address] [address] Rigoberto Nolasco PsyD, LP [address] [place] [id number] 05/25/2024 10:00 AM HAIRSPRING CUTTER Office Visit [address] [address] Rigoberto Nolasco PsyD, LP [address] [place] [address] 06/02/2024 10:00 AM HAIRSPRING CUTTER Office Visit [address] [address] Rigoberto Nolasco PsyD, LP [address] [place] [address] 06/08/2024 10:00 AM HAIRSPRING CUTTER Office Visit [address] [address] Rigoberto Nolasco PsyD, LP [address] [place] [address] 06/24/2024 10:15 AM CDT Office Visit [facility] [address] [place] [address] Amber Joyner MD [address] [place] [address] Health Maintenance Due Date Last Done Comments [...] HIV 1/2 (07/29/2023 11:27 AM CDT) Pathologist [facility] HIV-1/HIV-2 SCREEN Non-Reacti ve Non-Reacti ve 07/30/2023 4:56 AM CDT [facility] Comment:HIV-1 p24 and HIV-1/ HIV-2 Ab Not Detected. Blood BLOOD SPECIMEN / Unknown Venipuncture / Unknown 07/29/2023 11:27 AM CDT 07/29/2023 11:30 AM CDT [employer] DO SEND OUTS Final Result Performing Organization Address City/[facility]/ZIP Co de Phone Number [facility] [address] [place] [address], * HPV HIGH RISK (01/30/2023 9:33 AM CDT) [facility] TYPE 16 Negative Negative 02/02/2023 8:03 AM CDT [facility] TYPE 18 Negative Negative 02/02/2023 8:03 AM CDT [facility] OTHER HIGH RISK TYPES Negative Negative 02/02/2023 8:03 AM CDT [facility] Other (Cervical) Non-Blood / Unknown 01/30/2023 9:33 AM CDT 01/31/2023 11:28 AM CDT Narrative [facility] - 02/02/2023 8:03 AM CDT HPV types 16, 18, 31, 33, 35, 39, 45, 51, 52, 56, 58, 59, 66 and 68 DNA were undetectable or below the pre-set threshold. Methodology: Rony Dejuan 4800 HPV Test [employer] DO MICROBIOLOGY Final Result Performing Organization Address City/[facility]/ZIP Co de Phone Number [facility] [address] [place] [address], * ANTI HCV (02/10/2021 2:13 PM CDT) Pathologist [facility] HEPATITIS C ANTIBODY Non-React meghana Non-React meghana 02/10/2021 9:06 PM CDT [facility] Comment:Antibodies to HCV no t detected; does not exclude the possibility of exposure to HCV. Blood BLOOD SPECIMEN / Unknown Venipuncture / Unknown 02/10/2021 2:13 PM CDT 02/10/2021 2:13 PM CDT us Swetha Cabral DO SEND OUTS Final Result [facility] [address] [place] [address], [place] from Last 3 Months or Most Recently Relevant to Health Maintenance Additional Health Concerns Infection Onset Date Last Indicated Rule-Out C.diff 03/23/2020 03/23/2020 Insurance MEDICAID t of [facility] [place] [address] [facility] Advance Directives * Full Code (Latest Code Status on File) Date Activated Date Inactivated Comments 01/26/2016 11:30 PM 03/09/2016 3:50 PM Question Answer Comments Code Status Discussion: Per Existing Order Care Teams Esl Tutor Relationship Specialty Start Date End Date Swetha Cabral DO [address] [place] [address] PCP - General Family Practice 07/29/23
[2024-05-16] MEDS: GENTAMICIN 0.3% OPHTH 2 DROP EYE-LEFT (04:07)
== END 2024-05-16 04:16 | disposition home or self-care (01) ==
LOC: ED 03:32
PROVIDERS: Emergency Provider Emergency Medicine
DX: T15.02XA Foreign body in cornea, left eye, initial encounter (principal); H18.829 Corneal disorder due to contact lens, unspecified eye
CPT/HCPCS: 65222; 99282; 99283